=== PATIENT | female | born 1965 | race Caucasian/White ===

== ENCOUNTER 2017-09-20 08:02 | Emergency (ER) | payer OTHER ==
[~2017-09-20] VITALS: Ht 162.6 cm; Wt 76.4 kg
[2017-09-20 08:08] VITALS: BP 117/72
[2017-09-20] MEDS ORDERED: NAPR-56 PO (08:38)
[2017-09-20] MEDS ORDERED: TRAM50TA2 PO (08:38)
== END 2017-09-20 09:00 | disposition home or self-care (01) ==
LOC: ER 08:02
DX: S62.92XA Unspecified fracture of left hand, initial encounter for closed fracture (principal); Z79.899 Other long term (current) drug therapy; W23.0XXA Caught, crushed, jammed, or pinched between moving objects, initial encounter; Y93.89 Activity, other specified; Y92.89 Other specified places as the place of occurrence of the external cause; Y99.8 Other external cause status
CPT/HCPCS: 29125; 73130; 99284

== ENCOUNTER 2017-09-24 08:56 | Outpatient (CLI) | payer OTHER ==
[2017-09-24 08:54] VITALS: BP 112/61
[~2017-09-24 08:56] MED LIST: NAPR-56 PO; TRAM50TA2 PO
== END 2017-09-24 09:30 | disposition home or self-care (01) ==
LOC: ORTHO 08:56
PROVIDERS: ATTEND Nurse Practitioner Family
DX: S62.367A Nondisplaced fracture of neck of fifth metacarpal bone, left hand, initial encounter for closed fracture (principal); X58.XXXA Exposure to other specified factors, initial encounter; Y93.89 Activity, other specified; Y92.89 Other specified places as the place of occurrence of the external cause; Y99.8 Other external cause status
CPT/HCPCS: 29125

== ENCOUNTER 2017-10-08 08:29 | Outpatient (CLI) | payer OTHER ==
[2017-10-08 08:28] VITALS: BP 108/58
== END 2017-10-08 09:10 | disposition home or self-care (01) ==
LOC: ORTHO 08:29
PROVIDERS: ATTEND Nurse Practitioner Family
DX: S62.367D Nondisplaced fracture of neck of fifth metacarpal bone, left hand, subsequent encounter for fracture with routine healing (principal); X58.XXXD Exposure to other specified factors, subsequent encounter
CPT/HCPCS: 29260; 73130; 99213

== ENCOUNTER 2017-10-29 08:32 | Outpatient (CLI) | payer OTHER ==
[2017-10-29 08:38] VITALS: BP 115/72
== END 2017-10-29 08:58 | disposition home or self-care (01) ==
LOC: ORTHO 08:32
PROVIDERS: ATTEND Nurse Practitioner Family
DX: S62.367D Nondisplaced fracture of neck of fifth metacarpal bone, left hand, subsequent encounter for fracture with routine healing (principal); X58.XXXD Exposure to other specified factors, subsequent encounter
CPT/HCPCS: 73130; 99212

== ENCOUNTER 2018-11-02 10:19 | Outpatient (CLI) | payer OTHER ==
[2018-11-02 11:01] LABS: CLARITY,URINE CLEAR (Clear); COLOR,URINE YELLOW (Yellow); GLUCOSE, URINE NEGATIVE (Neg); KETONES,URINE NEGATIVE (Neg); LEUKOCYTE ESTERASE ,URINE NEGATIVE (Neg); NITRITES, URINE NEGATIVE (Neg); OCCULT BLOOD,URINE NEGATIVE (Neg); PROTEIN,URINE NEGATIVE (Neg); UROBILINOGEN,URINE 0.2 E.U/dL (0.2-1.0)
[2018-11-02 11:04] LABS: BASOPHILS % (AUTO) 0.8 % (0-1); EOSINOPHILS # (AUTO) 0.5 X10'3 (0-0.9); EOSINOPHILS % (AUTO) 7.9 % (0-6); HEMATOCRIT 39.3 % (35.0-45.0); HEMOGLOBIN 13.3 g/dl (12.0-16.0); LYMPHOCYTES # (AUTO) 1.6 X10'3 (1.1-4.8); LYMPHOCYTES % (AUTO) 26.2 % (21-51); MEAN CORPUSCULAR HEMOGLOBIN 31.9 PG (27.0-31.0); MEAN CORPUSCULAR HGB CONC 33.8 g/dL (33.0-36.5); MEAN CORPUSCULAR VOLUME 94.4 FL (78-98); MEAN PLATELET VOLUME 8.6 FL (7.4-10.4); MONOCYTES # (AUTO) 0.8 X10'3 (0-0.9); MONOCYTES % (AUTO) 13.4 % (2-12); NEUTROPHILS # (AUTO) 3.1 X10'3 (1.8-7.7); NEUTROPHILS % (AUTO) 51.7 % (42-75); PLATELET COUNT 292 X10'3 (140-440); RED BLOOD COUNT 4.17 X10'6 (4.20-5.60); RED CELL DISTRIBUTION WIDTH 12.1 % (11.5-14.5); WHITE BLOOD COUNT 5.9 X10'3 (4.5-11.0)
[2018-11-02 11:18] LABS: UA COLLECTION TYPE CLN CATCH MIDSTREAM
[2018-11-02 11:19] LABS: ALANINE AMINOTRANSFERASE 28 U/L (12-78); ALBUMIN 3.8 G/DL (3.4-5.0); ALKALINE PHOSPHATASE 54 IU/L (46-116); ANION GAP 9 (8-16); ASPARTATE AMINO TRANSFERASE 22 U/L (10-37); BILIRUBIN,TOTAL 0.5 MG/DL (0.1-1.0); BLOOD UREA NITROGEN 12 MG/DL (7-18); BUN/CREATININE RATIO 19.7 (6.6-38.0); CALCIUM 8.7 MG/DL (8.5-10.1); CHLORIDE 104 MMOL/L (99-107); CHOL/HDL RATIO 2.7 (0.00-4.99); CHOLESTEROL 192 MG/DL (0-200); CREATININE 0.61 MG/DL (0.40-0.90); GLUCOSE 88 MG/DL (70-104); HDL CHOLESTEROL 70 MG/DL (35-60); LDL CHOLESTEROL 108 MG/DL (50-100); POTASSIUM 3.8 MMOL/L (3.5-5.1); SODIUM 141 MMOL/L (135-145); TOTAL CARBON DIOXIDE 28.3 MMOL/L (24-32); TOTAL PROTEIN 7.6 G/DL (6.4-8.2); TRIGLYCERIDES 53 MG/DL (20-135); eGFR > 90 ML/MIN
== END 2018-11-02 23:59 | disposition home or self-care (01) ==
LOC: LAB 10:19
PROVIDERS: ATTEND Family Medicine
DX: Z00.00 Encounter for general adult medical examination without abnormal findings (principal); J45.909 Unspecified asthma, uncomplicated
CPT/HCPCS: 36415; 80053; 80061; 81003; 84439; 84443; 85025

== ENCOUNTER 2020-10-08 12:50 | Emergency (ER) | payer BC, OTHER ==
[~2020-10-08] VITALS: Ht 162.6 cm; Wt 76.4 kg
[2020-10-08] MEDS ORDERED: aspirin 81mg tab.chew PO ONE (13:15)
[2020-10-08 13:50] LABS: BASOPHILS # (AUTO) 0.1 X10'3 (0-0.2); BASOPHILS % (AUTO) 0.7 % (0-1); EOSINOPHILS # (AUTO) 0.5 X10'3 (0-0.9); EOSINOPHILS % (AUTO) 6.7 % (0-6); HEMATOCRIT 39.5 % (35.0-45.0); HEMOGLOBIN 13.6 g/dl (12.0-16.0); LYMPHOCYTES # (AUTO) 2.1 X10'3 (1.1-4.8); MEAN CORPUSCULAR HEMOGLOBIN 32.9 PG (27.0-31.0); MEAN CORPUSCULAR HGB CONC 34.5 g/dL (33.0-36.5); MEAN CORPUSCULAR VOLUME 95.6 FL (78-98); MEAN PLATELET VOLUME 8.6 FL (7.4-10.4); MONOCYTES # (AUTO) 0.8 X10'3 (0-0.9); NEUTROPHILS # (AUTO) 4.5 X10'3 (1.8-7.7); NEUTROPHILS % (AUTO) 56.6 % (42-75); PLATELET COUNT 337 X10'3 (140-440); RED BLOOD COUNT 4.13 X10'6 (4.20-5.60); RED CELL DISTRIBUTION WIDTH 12.4 % (11.5-14.5); WHITE BLOOD COUNT 7.9 X10'3 (4.5-11.0)
[2020-10-08 14:07] LABS: ALANINE AMINOTRANSFERASE 25 U/L (12-78); ALBUMIN 3.8 G/DL (3.4-5.0); ALBUMIN/GLOBULIN RATIO 0.9 (1.1-1.5); ALKALINE PHOSPHATASE 57 IU/L (46-116); ANION GAP 9 (8-16); ASPARTATE AMINO TRANSFERASE 18 U/L (10-37); BILIRUBIN,TOTAL 0.4 MG/DL (0.1-1.0); BLOOD UREA NITROGEN 10 MG/DL (7-18); BUN/CREATININE RATIO 15.9 (6.6-38.0); CALCIUM 8.8 MG/DL (8.5-10.1); CHLORIDE 104 MMOL/L (99-107); CREATININE 0.63 MG/DL (0.40-0.90); GLUCOSE 114 MG/DL (70-104); POTASSIUM 3.5 MMOL/L (3.5-5.1); SODIUM 142 MMOL/L (135-145); TOTAL CARBON DIOXIDE 28.9 MMOL/L (24-32); TOTAL PROTEIN 7.9 G/DL (6.4-8.2); eGFR > 90 ML/MIN
[2020-10-08 14:14] LABS: MAGNESIUM 2.1 MG/DL (1.5-2.4)
[2020-10-08 15:00] VITALS: BP 113/67
[2020-10-08 15:14] LABS: D-DIMER < 0.19 MG/L FEU (0-0.50)
--- NOTE | 2020-10-08 15:46 | NUR ---
SALES ARCHITECT REQUEST I LOOK AT CHART FOR POTENTIAL ADMISSION TO ACCE, IF ER MD AND HOSPITALIST AGREE FOR ADMIT, PATIENT ACCEPTABLE FOR ROOM 316.
== END 2020-10-08 16:47 | disposition home or self-care (01) ==
LOC: ER 12:50 → EEVIPCON 12:50 → ER 16:47
DX: R07.89 Other chest pain (principal); R61 Generalized hyperhidrosis; Z88.1 Allergy status to other antibiotic agents
CPT/HCPCS: 36415; 71045; 80053; 83735; 83880; 84484; 85025; 85379; 93005; 99285

== ENCOUNTER 2020-10-21 07:11 | Outpatient (CLI) | payer BC | END 2020-10-21 23:59 | disposition home or self-care (01) | LOC: CARD DIAG 07:11 | PROVIDERS: ATTEND Internal Medicine Interventional Cardiology | DX: R07.9 Chest pain, unspecified (principal) | CPT/HCPCS: 93306 ==

== ENCOUNTER → 2021-06-09 | Outpatient (CLI) | payer BC ==
[2021-06-09 15:50] LABS: BASOPHILS % (AUTO) 0.5 % (0-1); EOSINOPHILS # (AUTO) 0.3 X10'3 (0-0.9); EOSINOPHILS % (AUTO) 3.2 % (0-6); HEMATOCRIT 36.9 % (35.0-45.0); HEMOGLOBIN 12.6 g/dl (12.0-16.0); LYMPHOCYTES # (AUTO) 2.2 X10'3 (1.1-4.8); LYMPHOCYTES % (AUTO) 25.4 % (21-51); MEAN CORPUSCULAR HEMOGLOBIN 33.1 PG (27.0-31.0); MEAN CORPUSCULAR HGB CONC 34.2 g/dL (33.0-36.5); MEAN CORPUSCULAR VOLUME 96.7 FL (78-98); MEAN PLATELET VOLUME 8.2 FL (7.4-10.4); MONOCYTES # (AUTO) 0.8 X10'3 (0-0.9); MONOCYTES % (AUTO) 8.9 % (2-12); NEUTROPHILS # (AUTO) 5.4 X10'3 (1.8-7.7); PLATELET COUNT 317 X10'3 (140-440); RED BLOOD COUNT 3.82 X10'6 (4.20-5.60); RED CELL DISTRIBUTION WIDTH 12.8 % (11.5-14.5); WHITE BLOOD COUNT 8.7 X10'3 (4.5-11.0)
[2021-06-09 16:07] LABS: UA COLLECTION TYPE CLN CATCH MIDSTREAM
[2021-06-09 16:08] LABS: CLARITY,URINE SLIGHTLY CLOUDY (Clear); COLOR,URINE YELLOW (Yellow); GLUCOSE, URINE NEGATIVE (Neg); KETONES,URINE NEGATIVE (Neg); LEUKOCYTE ESTERASE ,URINE NEGATIVE (Neg); NITRITES, URINE NEGATIVE (Neg); OCCULT BLOOD,URINE NEGATIVE (Neg); PH,URINE 7.5 (4.8-8.0); PROTEIN,URINE NEGATIVE (Neg); UROBILINOGEN,URINE 0.2 E.U/dL (0.2-1.0)
[2021-06-09 16:16] LABS: ALANINE AMINOTRANSFERASE 24 U/L (12-78); ALBUMIN 3.5 G/DL (3.4-5.0); ALBUMIN/GLOBULIN RATIO 0.9 (1.1-1.5); ALKALINE PHOSPHATASE 56 IU/L (46-116); ANION GAP 9 (8-16); ASPARTATE AMINO TRANSFERASE 19 U/L (10-37); BILIRUBIN,TOTAL 0.3 MG/DL (0.1-1.0); BLOOD UREA NITROGEN 12 MG/DL (7-18); BUN/CREATININE RATIO 19.4 (6.6-38.0); CALCIUM 8.3 MG/DL (8.5-10.1); CHLORIDE 102 MMOL/L (99-107); CHOL/HDL RATIO 2.6 (0.00-4.99); CHOLESTEROL 208 MG/DL (0-200); CREATININE 0.62 MG/DL (0.40-0.90); GLUCOSE 84 MG/DL (70-104); HDL CHOLESTEROL 79 MG/DL (35-60); LDL CHOLESTEROL 113 MG/DL (50-100); POTASSIUM 3.9 MMOL/L (3.5-5.1); SODIUM 137 MMOL/L (135-145); TOTAL CARBON DIOXIDE 25.8 MMOL/L (24-32); TOTAL PROTEIN 7.5 G/DL (6.4-8.2); TRIGLYCERIDES 97 MG/DL (20-135); eGFR > 90 ML/MIN
[2021-06-09 16:25] LABS: BACTERIA,URINE NONE SEEN /HPF (Neg); RBC,URINE NONE SEEN /HPF (0-2); SQUAMOUS EPITHELIAL CELL,UR FEW /LPF (FEW); WBC,URINE NONE SEEN /HPF (0-4)
== END | disposition home or self-care (01) ==
LOC: LAB 14:46
PROVIDERS: ATTEND Family Medicine
DX: Z00.01 Encounter for general adult medical examination with abnormal findings (principal)
CPT/HCPCS: 36415; 80053; 80061; 81001; 84439; 84443; 85025

== ENCOUNTER 2021-10-20 13:26 | Outpatient (CLI) | payer BC | END 2021-10-20 23:59 | disposition home or self-care (01) | LOC: RAD 13:26 | PROVIDERS: ATTEND Physician Assistant | DX: M79.671 Pain in right foot (principal) | CPT/HCPCS: 73630 ==

== ENCOUNTER 2021-12-05 10:41 | Outpatient (CLI) | payer BC ==
[2021-12-05 14:37] LABS: BASOPHILS # (AUTO) 0.1 X10'3 (0-0.2); BASOPHILS % (AUTO) 0.7 % (0-1); EOSINOPHILS # (AUTO) 1.6 X10'3 (0-0.9); EOSINOPHILS % (AUTO) 15.8 % (0-6); HEMOGLOBIN 13.4 g/dl (12.0-16.0); LYMPHOCYTES # (AUTO) 2.7 X10'3 (1.1-4.8); LYMPHOCYTES % (AUTO) 27.4 % (21-51); MEAN CORPUSCULAR HEMOGLOBIN 32.3 PG (27.0-31.0); MEAN CORPUSCULAR HGB CONC 34.3 g/dL (33.0-36.5); MEAN PLATELET VOLUME 8.8 FL (7.4-10.4); MONOCYTES # (AUTO) 0.8 X10'3 (0-0.9); MONOCYTES % (AUTO) 8.3 % (2-12); NEUTROPHILS # (AUTO) 4.7 X10'3 (1.8-7.7); NEUTROPHILS % (AUTO) 47.8 % (42-75); PLATELET COUNT 311 X10'3 (140-440); RED BLOOD COUNT 4.15 X10'6 (4.20-5.60); RED CELL DISTRIBUTION WIDTH 12.2 % (11.5-14.5); WHITE BLOOD COUNT 9.8 X10'3 (4.5-11.0)
[2021-12-05 14:41] LABS: CLARITY,URINE CLEAR (Clear); COLOR,URINE YELLOW (Yellow); GLUCOSE, URINE NEGATIVE (Neg); KETONES,URINE NEGATIVE (Neg); LEUKOCYTE ESTERASE ,URINE TRACE (Neg); NITRITES, URINE NEGATIVE (Neg); OCCULT BLOOD,URINE NEGATIVE (Neg); PH,URINE 6.5 (4.8-8.0); PROTEIN,URINE NEGATIVE (Neg); UROBILINOGEN,URINE 0.2 E.U/dL (0.2-1.0)
[2021-12-05 14:48] LABS: UA COLLECTION TYPE CLN CATCH MIDSTREAM
[2021-12-05 14:49] LABS: RBC,URINE NONE SEEN /HPF (0-2); WBC,URINE 0-4 /HPF (0-4)
[2021-12-05 14:50] LABS: BACTERIA,URINE 2+ /HPF (Neg); MUCUS STRANDS FEW /LPF (Neg); SQUAMOUS EPITHELIAL CELL,UR MODERATE /LPF (FEW)
[2021-12-05 14:58] LABS: ALANINE AMINOTRANSFERASE 30 U/L (12-78); ALBUMIN 3.9 G/DL (3.4-5.0); ALKALINE PHOSPHATASE 73 IU/L (46-116); ANION GAP 8 (8-16); ASPARTATE AMINO TRANSFERASE 13 U/L (10-37); BILIRUBIN,TOTAL 0.2 MG/DL (0.1-1.0); BLOOD UREA NITROGEN 14 MG/DL (7-18); BUN/CREATININE RATIO 19.2 (6.6-38.0); CHLORIDE 101 MMOL/L (99-107); CHOL/HDL RATIO 3.5 (0.00-4.99); CHOLESTEROL 220 MG/DL (0-200); CREATININE 0.73 MG/DL (0.40-0.90); GLUCOSE 92 MG/DL (70-104); HDL CHOLESTEROL 62 MG/DL (35-60); LDL CHOLESTEROL 136 MG/DL (50-100); POTASSIUM 3.6 MMOL/L (3.5-5.1); SODIUM 139 MMOL/L (135-145); TOTAL CARBON DIOXIDE 29.6 MMOL/L (24-32); TOTAL PROTEIN 7.8 G/DL (6.4-8.2); TRIGLYCERIDES 183 MG/DL (20-135); eGFR 83 ML/MIN
== END 2021-12-05 23:59 | disposition home or self-care (01) ==
LOC: LAB 10:41
PROVIDERS: ATTEND Family Medicine
DX: Z00.01 Encounter for general adult medical examination with abnormal findings (principal)
CPT/HCPCS: 36415; 80053; 80061; 81001; 84439; 84443; 85025

== ENCOUNTER 2021-12-23 15:56 | Outpatient (CLI) | payer BC | END 2021-12-23 23:59 | disposition home or self-care (01) | LOC: RAD 15:56 | PROVIDERS: ATTEND Family Medicine | DX: M79.671 Pain in right foot (principal); N39.0 Urinary tract infection, site not specified | CPT/HCPCS: 73721; 87088 ==

== ENCOUNTER 2023-07-02 08:37 | Outpatient (CLI) | payer BC | END 2023-07-02 23:59 | disposition home or self-care (01) | LOC: RAD 08:37 | PROVIDERS: ATTEND Urology Female Pelvic Medicine and Reconstructive Surgery | DX: Z01.812 Encounter for preprocedural laboratory examination (principal); R21 Rash and other nonspecific skin eruption; R11.10 Vomiting, unspecified | CPT/HCPCS: 93005 ==

== ENCOUNTER → 2023-08-27 | Outpatient (CLI) | payer BC ==
[2023-08-27 09:36] LABS: BASOPHILS # (AUTO) 0.1 X10'3 (0-0.2); BASOPHILS % (AUTO) 0.8 % (0-1); EOSINOPHILS # (AUTO) 0.5 X10'3 (0-0.9); EOSINOPHILS % (AUTO) 6.6 % (0-6); HEMOGLOBIN 13.9 g/dl (12.0-16.0); LYMPHOCYTES # (AUTO) 2.2 X10'3 (1.1-4.8); LYMPHOCYTES % (AUTO) 29.2 % (21-51); MEAN CORPUSCULAR HEMOGLOBIN 32.3 PG (27.0-31.0); MEAN CORPUSCULAR HGB CONC 33.8 g/dL (33.0-36.5); MEAN CORPUSCULAR VOLUME 95.4 FL (78-98); MEAN PLATELET VOLUME 8.6 FL (7.4-10.4); MONOCYTES # (AUTO) 0.8 X10'3 (0-0.9); MONOCYTES % (AUTO) 10.4 % (2-12); PLATELET COUNT 306 X10'3 (140-440); RED BLOOD COUNT 4.29 X10'6 (4.20-5.60); RED CELL DISTRIBUTION WIDTH 12.5 % (11.5-14.5); WHITE BLOOD COUNT 7.6 X10'3 (4.5-11.0)
[2023-08-27 09:40] LABS: ALBUMIN 3.8 G/DL (3.4-5.0); ANION GAP 7 (8-16); BLOOD UREA NITROGEN 12 MG/DL (7-18); BUN/CREATININE RATIO 20.3 (10.0-20.0); CHLORIDE 99 MMOL/L (99-107); CREATININE 0.59 MG/DL (0.40-0.90); GLUCOSE 91 MG/DL (70-104); SODIUM 134 MMOL/L (135-145); TOTAL CARBON DIOXIDE 28.1 MMOL/L (24-32); eGFR > 90 ML/MIN
== END | disposition home or self-care (01) ==
LOC: LAB 09:06
PROVIDERS: ATTEND Urology Female Pelvic Medicine and Reconstructive Surgery
DX: Z01.812 Encounter for preprocedural laboratory examination (principal); R53.83 Other fatigue
CPT/HCPCS: 36415; 80048; 85025

== ENCOUNTER 2025-04-01 15:32 | Emergency (ER) | payer BC ==
[~2025-04-01] VITALS: Ht 162.6 cm; Wt 79.7 kg
[2025-04-01 15:42] VITALS: BP 121/56; PULSE 67; TEMP 97.2; O2SAT 99
--- NOTE | 2025-04-01 16:26 | RADIOLOGY REPORT ---
Indication: FOOT PAIN Technique: DI FOOT, COMPLETE (3VW MIN)FOOT CPLT Comparison: None FINDINGS/IMPRESSION: Comminuted oblique fracture of the 5th metacarpal mid to distal shaft. Lateral left foot soft tissue edema.
--- NOTE | 2025-04-01 16:58 | Physician Documentation ---
History of Present Illness ~ Chief Complaint: Foot pain Stated Complaint: LT FOOT PAIN Time Seen by MD: 16:35 OK to notify your PCP?: Yes Primary Medical Doctor: DR. PIMENTEL Source: patient Mode of Arrival: POV Exam Limitations: no limitations HPI 59-year-old female presents with left foot and ankle pain after she was putting together a bed frame and stepped through particle board landed on her foot. She took 600 mg ibuprofen approximately 3:00 p.m. today prior to arrival. She does have an abrasion to bilateral legs. Tetanus witin 5 years: Yes Medication Reconciliation Allergies: Coded Allergies: cefaclor (Verified Allergy, Unknown, 04/01/25) Past Medical History Past Medical History: No Pertinent History Past Surgical History: noncontributory Alcohol Use: Occasionally Drug Use: none Lives with: Family Lives In: Home Occupation: employed Review of Systems All Other Systems at this time: Reviewed and Negative Physical Exam Vital Signs: RN Vital Signs have been reviewed: Yes, Temperature: 97.2, Source: Temporal, Heart Rate: 67, Respiratory Rate: 16, BP: 121/56, Pulse Oximetry: 99, Weight: 79.700 Oxygen Flow Rate: 0 Pulse Oximetry Reflects: adequate oxygenation Physical Exam General: Alert, no distress. HEENT: No injection, moist mucous membranes. Neck: Full range of motion. Respiratory: No respiratory distress, equal chest rise and fall. Chest: No accessory muscle use. Cardiovascular: Regular rate and rhythm. Gastrointestinal: Nondistended. Extremities: Decreased range motion of left ankle and foot. Good CSM, good pulses good sensation in left foot. Edema to lateral portion of left foot and ankle and tenderness to palpation to lateral portion of left foot, no bruising noted. Neurologic: Oriented x4. Psychiatric: Normal mood and affect. Skin: Normal color, warm and dry. Progress Results/Orders Reviewed/noted all lab results: Yes Results/Orders Orders - FERNANDA WHITTEN Ortho Orders (04/01/25 ) Completed Orders - FERNANDA WHITTEN Hydrocodone/Apap 10/325 (Brimhall 10/325mg (04/01/25 16:45) Vital Signs 04/01/25 15:42 Temp 97.2 Pulse 67 Resp 16 B/P (MAP) 121/56 Pulse Ox 99 O2 Flow Rate 0 EKG/XRAY/CT/US/VASC/MRI Bone/Soft Tissue X-Ray (Ext.) : Additional Comment Left foot x-ray as interpreted by me; mild soft tissue swelling to left lateral foot, no dislocation. There is a comminuted oblique fracture of the 5th metacarpal mid to distal shaft. Medical Decision Making Additional info obtained from: old records, family Findings 59-year-old female with left foot pain and swelling. Physical exam shows edema and tenderness to palpation of left foot otherwise unremarkable exam. Her x-ray shows a comminuted oblique fracture of the 5th metacarpal mid to distal shaft with lateral left foot soft tissue edema. Gave her a Brimhall 10/325mg for the pain as she had already taken ibuprofen prior to arrival. I ordered a short-leg posterior splint with a stirrup with crutches. She is requesting to be seen by Dr. Garcia, but he is not on-call for us today. We discussed that I can not do a direct referral out of the ER that she will need to go through her primary care provider for a referral to orthopedist. I sent Brimhall to her pharmacy and she can continue with ibuprofen as well. We went over the RICE therapy as well. Foot Diff Dx:Considerations: Include: Arthritis, Dislocation, Gout, Neurovascular injury, Sprain Departure Disposition: 01 HOME / SELF CARE / HOMELESS Impression: Primary Impression: Fracture of foot Condition: Stable Discharge Instructions: Fracture, Foot Additional Instructions: Please keep splint clean and dry. Please use crutches and do not bear weight on your left foot. Follow up with primary care provider within the next 3 days to receive a referral to Orthopedics. Try using Tylenol and ibuprofen for pain relief but if this does not help then I have sent Brimhall to your pharmacy for pickup. Take care not to exceed 4000 mg of Tylenol within a 24 hour period. Please rest, ice, elevate your leg to prevent further swelling. Return back here for any new or worsening symptoms. Referrals: NO PRIMARY CARE PROVIDER (PCP) Prescriptions Hydrocodone Bit/Acetaminophen (Hydrocodon-Acetaminophn 10-325 tablet) 10mg- 325mg Tablet 1 TAB PO TID PRN PRN for pain for 5 Days, #15 TAB Prov: FERNANDA WHITTEN 04/01/25 Education Educated: Patient Educated regarding: diagnosis, treatment, prognosis, need for follow up Additional Comment Medical Screen Exam This patient recieved a medical screening examination. After reviewing the individual's medical complaints with presenting symptoms and performing an appropriate physical examination, it was determined that no immediate life- threatening emergency medical condition is present. This individual is also not a women having contractions. Signature Scribe Signature: . Attestation: Scribed for Fernanda Whitten [employer] Supervisor by Fernanda Azul NP . 04/01/25 17:03 Parts of this note were created using [employer] voice recognition software program. While efforts were made to correct any mistakes made by this voice recognition software program, nonsensical phrases may remain in this note. In addition, there may be errors and syntax, grammar, content and spelling. FERNANDA WHITTEN CLOSET ORGANIZER Apr 01, 2025 16:58
[2025-04-01] MEDS ORDERED: HYDR-3972 PO (17:01)
[2025-04-01 17:14] VITALS: RESP 15
[2025-04-01] MEDS: HYDROcodone/acetaminophen 10/325mg tab PO ONE (17:14)
== END 2025-04-01 17:30 | disposition home or self-care (01) ==
LOC: ER 15:32
DX: S92.352A Displaced fracture of fifth metatarsal bone, left foot, initial encounter for closed fracture (principal); Z88.1 Allergy status to other antibiotic agents; Z72.89 Other problems related to lifestyle; W20.8XXA Other cause of strike by thrown, projected or falling object, initial encounter; Y93.89 Activity, other specified; Y92.89 Other specified places as the place of occurrence of the external cause; Y99.8 Other external cause status
CPT/HCPCS: 29515; 73630; 99283; A6449

== ENCOUNTER 2025-04-27 09:38 | Outpatient (CLI) | payer BC ==
[~2025-04-27 09:38] MED LIST changes: +HYDR-3972 PO; -NAPR-56 PO; -TRAM50TA2 PO
--- NOTE | 2025-04-27 10:18 | RADIOLOGY REPORT ---
DI FOOT, COMPLETE (3VW MIN), INDICATION: FOOT PAIN LEFT TECHNICAL DATA: Frontal, oblique and lateral views were obtained of the right foot. COMPARISON: DI FOOT, COMPLETE (3VW MIN) on DOS: 04/01/25, MRI LOWER EXTREMITY RIGHT on DOS: 12/23/21, FOOT, COMPLETE (3VW MIN) on DOS: 10/20/21 FINDINGS: Similar displaced 5th metatarsal fracture. Joint spaces are maintained. Alignment is otherwise anatomic. The hallux sesamoids appear normal. Soft tissues are within normal limits. IMPRESSION: Similar displaced 5th metatarsal fracture with interval healing..
== END 2025-04-27 23:59 | disposition home or self-care (01) ==
LOC: RAD 09:38
PROVIDERS: ATTEND Podiatrist Foot & Ankle Surgery
DX: S92.352D Displaced fracture of fifth metatarsal bone, left foot, subsequent encounter for fracture with routine healing (principal); M79.672 Pain in left foot; X58.XXXD Exposure to other specified factors, subsequent encounter
CPT/HCPCS: 73630

== ENCOUNTER 2025-05-28 09:15 | Outpatient (CLI) | payer BC ==
--- NOTE | 2025-05-28 10:46 | RADIOLOGY REPORT ---
CLINICAL INDICATION: LEFT FOOT PAIN TECHNIQUE: 3 radiographic views of the left foot were obtained. Comparison: DI FOOT, COMPLETE (3VW MIN) on DOS: 04/27/25, DI FOOT, COMPLETE (3VW MIN) on DOS: 04/01/25, MRI LOWER EXTREMITY RIGHT on DOS: 12/23/21, FOOT, COMPLETE (3VW MIN) on DOS: 10/20/21 FINDINGS/IMPRESSION: Again visualized is a fracture of the left 5th metatarsal shaft.
== END 2025-05-28 23:59 | disposition home or self-care (01) ==
LOC: RAD 09:15
PROVIDERS: ATTEND Podiatrist Foot & Ankle Surgery
DX: S92.352A Displaced fracture of fifth metatarsal bone, left foot, initial encounter for closed fracture (principal); X58.XXXA Exposure to other specified factors, initial encounter; Y93.89 Activity, other specified; Y92.89 Other specified places as the place of occurrence of the external cause; Y99.8 Other external cause status
CPT/HCPCS: 73630

== ENCOUNTER 2025-08-13 15:43 | Outpatient (CLI) | payer BC ==
--- NOTE | 2025-08-13 18:11 | RADIOLOGY REPORT ---
EXAM: DI FOOT, COMPLETE (3VW MIN) CLINICAL INDICATION: FOOT PAIN LEF TECHNIQUE: DI FOOT, COMPLETE (3VW MIN) COMPARISON: DI FOOT, COMPLETE (3VW MIN) on DOS: 05/28/25, DI FOOT, COMPLETE (3VW MIN) on DOS: 04/27/25, DI FOOT, COMPLETE (3VW MIN) on DOS: 04/01/25, FOOT, COMPLETE (3VW MIN) on DOS: 10/20/21 FINDINGS/IMPRESSION: Again visualized is a fracture of the left 5th metatarsal shaft.
== END 2025-08-13 23:59 | disposition home or self-care (01) ==
LOC: RAD 15:43
PROVIDERS: ATTEND Orthopaedic Surgery Foot and Ankle Surgery
DX: S92.352A Displaced fracture of fifth metatarsal bone, left foot, initial encounter for closed fracture (principal); M79.672 Pain in left foot; X58.XXXA Exposure to other specified factors, initial encounter; Y93.89 Activity, other specified; Y92.89 Other specified places as the place of occurrence of the external cause; Y99.8 Other external cause status
CPT/HCPCS: 73630